=== PATIENT | female | born 1950 | race Caucasian/White ===

== ENCOUNTER 2025-08-12 13:59 | Outpatient (CLI) | payer MEDICARE ==
[~2025-08-12 13:59] MED LIST: Iopamidol 370 76% 100 ML VIAL ONE
[2025-08-12 14:48] LABS: Estimated GFR - POC 59.0
== END 2025-08-12 14:00 | disposition home or self-care (01) ==
LOC: CT 13:59
PROVIDERS: ATTEND Internal Medicine Gastroenterology
DX: Z12.11 Encounter for screening for malignant neoplasm of colon (principal); K21.9 Gastro-esophageal reflux disease without esophagitis; R93.5 Abnormal findings on diagnostic imaging of other abdominal regions, including retroperitoneum; R10.11 Right upper quadrant pain; N28.1 Cyst of kidney, acquired; K63.89 Other specified diseases of intestine
CPT/HCPCS: 36415; 74177; 82565